=== PATIENT | male | born 1990 | race Two or more races ===

== ENCOUNTER 2017-03-19 03:01 | Emergency (ER) | payer MEDICAID, OTHER ==
[~2017-03-19] VITALS: Ht 162.6 cm; Wt 72.6 kg
--- NOTE | 2017-03-19 03:20 | NUR ---
DR. CARDENAS AT BEDSIDE FOR MSE.
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
[2017-03-19] MEDS ORDERED: LIDOCAINE HCL 1% 20 ML VIAL IJ ONE (03:30)
[2017-03-19] MEDS ORDERED: TDAP DIPH,PERTUSS,TET VAC/PF 0.5 ML DISP.SYRIN IM ONE ×2 (03:30→03:47)
--- NOTE | 2017-03-19 04:40 | NUR ---
SUTURES DONE BY DR. CARDENAS.
[2017-03-19] MEDS ORDERED: MORPHINE SULFATE 4 MG/1 ML DISP.SYRIN IV ONE (05:00)
[2017-03-19] MEDS ORDERED: IV NORMAL SALINE 1000 ML BAG IV ONE (05:00)
[2017-03-19] MEDS ORDERED: ONDANSETRON IV *ER 4 MG/2 ML VIAL IV ONE (05:00)
[2017-03-19] MEDS ORDERED: CEFAZOLIN 1 G in IV DEXTROSE 5% 50 ML IV ONE (05:00)
[2017-03-19 05:14] LABS: BASOPHILS % (AUTO) 0.3 % (0.0-2.0); EOSINOPHILS # (AUTO) 0.2 K/uL (0.0-0.7); EOSINOPHILS % (AUTO) 2.2 % (0.0-7.0); HEMATOCRIT 42.8 % (40-50); HEMOGLOBIN 15.1 G/DL (14.0-18.0); LYMPHOCYTES # (AUTO) 1.8 K/UL (0.8-4.8); MEAN CORPUSCULAR HEMOGLOBIN 32.3 UUG (27.0-31.0); MEAN CORPUSCULAR HGB CONC 35 g/dL (32.0-37.0); MEAN CORPUSCULAR VOLUME 91.7 FL (82.0-92.0); MONOCYTES # (AUTO) 0.7 K/UL (0.1-1.30); MONOCYTES % (AUTO) 7.9 % (0.0-11.0); NEUTROPHILS # (AUTO) 6.1 K/UL (1.8-8.9); NEUTROPHILS % (AUTO) 69.6 % (38.5-71.5); PLATELET COUNT (AUTO) 256 K/UL (150-450); RED BLOOD CELL COUNT(AUTO) 4.67 MIL/UL (4.7-6.1); WHITE BLOOD COUNT (AUTO) 8.8 K/UL (4.0-11.2)
[2017-03-19] MEDS ORDERED: MORPHINE SULFATE 4 MG/1 ML DISP.SYRIN ONE (05:15)
[2017-03-19] MEDS ORDERED: CEFAZOLIN 1 G VIAL ONE (05:16)
[2017-03-19] MEDS ORDERED: ONDANSETRON 4 MG/2 ML VIAL ONE (05:16)
[2017-03-19] MEDS ORDERED: IOHEXOL 350 100 ML INFUS..BTL ONE (05:35)
[2017-03-19] MEDS ORDERED: IV NORMAL SALINE 250 ML IV ONE (05:35)
[2017-03-19 05:39] LABS: BILIRUBIN,DIRECT 0.1 mg/dL (0.0-0.2); BILIRUBIN,TOTAL 0.5 mg/dL (0.2-1.0); POTASSIUM 3.9 mmol/L (3.5-5.1); TOTAL PROTEIN, SERUM 7.2 g/dL (6.4-8.2)
--- NOTE | 2017-03-19 07:14 | NUR ---
REPORT GIVEN TO LESLY CORMIER.
--- NOTE | 2017-03-19 07:32 | NUR ---
called [facility] that is the preferred hospital for pt insurance for hand surgory.
--- NOTE | 2017-03-19 07:33 | NUR ---
PT ATE BREAKFAST ,90%.
[2017-03-19] MEDS ORDERED: HYDROCODONE/APAP 5-325MG TABLET PO ONE (07:45)
[2017-03-19] MEDS ORDERED: HYDROCODONE/APAP 5-325MG TABLET ONE (07:52)
--- NOTE | 2017-03-19 07:58 | NUR ---
PT'S WOUND AT RIGHT HAND WAS CLEANED WITH NS 0.9%, GAUZE DRESSING APPLIED. NO BLEEDING. PT TOLERATED TO PROCEDURE WITHOUT COMPLICATIONS.
--- NOTE | 2017-03-19 08:13 | NUR ---
[facility] TRIMMER, MARLINE, CALLED BACK. THEY CAN NOT ACCEPT PT, BECAUSE THEY DO NOT HAVE HAND SURGEON ON STAFF. DR LYNN NOTIFIED.
--- NOTE | 2017-03-19 08:31 | NUR ---
[facility] WAS CALLED TO TRANSFER THE PT ([phone]). TALKED TO JAIRO. FACE PAGE AND HISTORY AND PHYSICAL OF THE PT WERE FAXED ([phone]).
--- NOTE | 2017-03-19 11:45 | NUR ---
[facility] COORDINATOR,CASSIE, CALLED TO REQUEST PT'S CLINICAL INFORMATION. HE STATED THEIR ADMITING DICTOR WILL CONTACT DR LYNN SHORTLY WITH TRANSFER INFORMATION.
--- NOTE | 2017-03-19 16:06 | NUR ---
NADEGE FROM [facility] CALLED WITH PT'S APPOINTMENT INFORMATION WITH [facility]. DR LYNN NOTIFIED, HE TALKED TO THE PT.
--- NOTE | 2017-03-19 16:53 | NUR ---
PT WAS D/C TO HOME. D/C INSTRUCTIONS GIVEN TO THE PT BY DR LYNN. DRESSING IS INTACT. NO BLEEDING. PT DENIES PAIN AT THIS TIME.
[2017-03-19 16:58] VITALS: BP 131/80
== END 2017-03-19 16:59 | disposition home or self-care (01) ==
LOC: ER 03:01
DX: S11.91XA Laceration without foreign body of unspecified part of neck, initial encounter (principal); S60.551A Superficial foreign body of right hand, initial encounter; X58.XXXA Exposure to other specified factors, initial encounter; Y93.89 Activity, other specified; Y92.9 Unspecified place or not applicable; Y99.9 Unspecified external cause status
CPT/HCPCS: 36415; 70450; 73130; 85025; 85730; 86850; 86900; 86901; 90715; A4217; A4663; J0690; J2270; J2405; J3490; J7030; J7050; J7060; Q9967

== ENCOUNTER 2017-08-10 19:52 | Emergency (ER) | payer MEDICAID ==
[~2017-08-10] VITALS: Ht 162.6 cm; Wt 72.6 kg
--- NOTE | 2017-08-10 20:18 | NUR ---
PT C/O RECTAL PAIN X2 DAYS, WHICH HE STATES IT WORSE UPON MOVEMENT. DENIES N/V OR CONSTIPATION.
--- NOTE | 2017-08-10 20:41 | NUR ---
SACHIN WEATHERS AT BEDSIDE FOR MSE.
[2017-08-10] MEDS ORDERED: TRAMADOL HCL 50 MG TABLET ONE (20:57)
[2017-08-10] MEDS ORDERED: TRAMADOL HCL 50 MG TABLET PO ONE (21:00)
--- NOTE | 2017-08-10 21:21 | NUR ---
Patient discharged to home in stable conditon. Written and verbal after care instructions given. Patient verbalizes understanding of instructions. Pt left ER via wheelchair, accompanied by significant other. No distress noted.
[2017-08-10 21:31] VITALS: BP 112/70
== END 2017-08-10 21:31 | disposition home or self-care (01) ==
LOC: ER 19:52
DX: K64.9 Unspecified hemorrhoids (principal)
CPT/HCPCS: A4663

== ENCOUNTER 2018-11-17 00:24 | Emergency (ER) | payer MEDICAID, OTHER ==
[~2018-11-17] VITALS: Ht 167.6 cm; Wt 68.0 kg
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
[2018-11-17] MEDS ORDERED: HYDROCODONE/APAP 5-325MG TABLET PO ONE (01:00)
[2018-11-17] MEDS ORDERED: SODIUM BICARBONATE 4.2 % (NEUT) 5 ML VIAL TP ONE (01:00)
[2018-11-17] MEDS ORDERED: NEOMY/BACITRA/POLYMYXIN B OINT UD PACKET TP ONE ×2 (01:00→01:28)
[2018-11-17] MEDS ORDERED: LET TOPICAL SOLUTION 8 ML UDC TOP ONE (01:00)
[2018-11-17] MEDS ORDERED: LIDOCAINE HCL 2% 20 ML VIAL TP ONE (01:00)
[2018-11-17] MEDS ORDERED: HYDROCODONE/APAP 5-325MG TABLET ONE (01:28)
--- NOTE | 2018-11-17 03:19 | NUR ---
Patient given written and verbal discharge instructions. Patient verbalizes understanding of instructions. Patient is ambulatory using crutches with steady gait. Refuses offer of prison placement. Patient given list of available shelters in surrounding area.
== END 2018-11-17 03:19 | disposition home or self-care (01) ==
LOC: ER 00:24
DX: S81.812A Laceration without foreign body, left lower leg, initial encounter (principal); F17.210 Nicotine dependence, cigarettes, uncomplicated; F12.10 Cannabis abuse, uncomplicated; Z59.0 Homelessness; W26.8XXA Contact with other sharp object(s), not elsewhere classified, initial encounter; Y93.89 Activity, other specified; Y92.89 Other specified places as the place of occurrence of the external cause; Y99.8 Other external cause status
CPT/HCPCS: 12002; 73590; 99283; J3490; A4217; A4663

== ENCOUNTER 2019-07-25 11:49 | Emergency (ER) | payer MEDICAID, OTHER ==
[~2019-07-25] VITALS: Ht 165.1 cm; Wt 72.6 kg
--- NOTE | 2019-07-25 12:09 | NUR ---
PT IS IN ROOM #2A. DR GOMEZ EVALUATED THE PT.
[2019-07-25] MEDS ORDERED: IV NORMAL SALINE 1000 ML BAG IV ONE (12:30)
[2019-07-25] MEDS ORDERED: PANTOPRAZOLE SODIUM 40 MG VIAL IV ONE (12:30)
[2019-07-25] MEDS ORDERED: ONDANSETRON 4 MG/2 ML VIAL IV ONE (12:30)
[2019-07-25 12:38] LABS: BASOPHILS % (AUTO) 0.2 % (0.0-2.0); EOSINOPHILS # (AUTO) 0.1 K/uL (0.0-0.7); HEMATOCRIT 42.2 % (36.7-47.1); HEMOGLOBIN 14.6 g/dL (12.5-16.3); LYMPHOCYTES % (AUTO) 16.9 % (20.5-51.5); MEAN CORPUSCULAR HGB CONC 35 g/dL (32.5-36.3); MEAN CORPUSCULAR VOLUME 89.3 fL (73.0-96.2); MONOCYTES % (AUTO) 15.9 % (0.0-11.0); PLATELET COUNT (AUTO) 206 K/uL (152-348); RED BLOOD CELL COUNT(AUTO) 4.73 MIL/uL (4.06-5.63); WHITE BLOOD COUNT (AUTO) 6.1 K/uL (3.6-10.2)
[2019-07-25] MEDS ORDERED: ONDANSETRON 4 MG/2 ML VIAL ONE (12:40)
[2019-07-25] MEDS ORDERED: PANTOPRAZOLE SODIUM 40 MG VIAL ONE (12:40)
[2019-07-25 12:46] LABS: POTASSIUM 3.5 mmol/L (3.5-5.1)
[2019-07-25 12:52] LABS: BILIRUBIN,DIRECT 0.2 mg/dL (0.0-0.2); BILIRUBIN,TOTAL 1.4 mg/dL (0.2-1.0); TOTAL PROTEIN, SERUM 6.7 g/dL (6.4-8.2)
[2019-07-25 13:20] LABS: EOSINOPHILS % (MANUAL) 2 % (0-8); LYMPHOCYTES % (MANUAL) 16 % (20-40); MONOCYTES % (MANUAL) 15 % (2-10); NEUTROPHILS % (MANUAL) 67 % (42-75)
[2019-07-25] MEDS ORDERED: KETOROLAC TROMETHAMINE 30 MG INJ IVP ONE (13:45)
[2019-07-25] MEDS ORDERED: KETOROLAC TROMETHAMINE 30 MG INJ ONE (13:50)
[2019-07-25 14:03] LABS: *BILIRUBIN,URIN NEGATIVE (NEGATIVE); *BLOOD, URINE NEGATIVE (NEGATIVE); *CLARITY,URINE CLEAR (CLEAR); *COLOR,URINE YELLOW (YELLOW); *KETONES,URINE NEGATIVE (NEGATIVE); *UROBILINOGEN,URINE 0.2 E.U./dl (NORMAL); LEUKOCYTE ESTERASE ,URINE NEGATIVE (NEGATIVE); NITRITE, URINE NEGATIVE (NEGATIVE); UGLUCOSE NEGATIVE (NEGATIVE)
--- NOTE | 2019-07-25 14:48 | NUR ---
PT WAS D/C'd TO HOME. D/C INSTRUCTIONS GIVEN TO THE PT.
[2019-07-25 14:54] VITALS: BP 133/69
== END 2019-07-25 14:55 | disposition home or self-care (01) ==
LOC: ER 11:49
DX: K52.89 Other specified noninfective gastroenteritis and colitis (principal); K29.20 Alcoholic gastritis without bleeding; R51 Headache; F17.200 Nicotine dependence, unspecified, uncomplicated; Z59.0 Homelessness
CPT/HCPCS: 36415; 70450; 71045; 80048; 80076; 81001; 83690; 84484; 85007; 85025; 85730; 93005; 96374; 96375; 99285; C9113; J1885; J2405; 70030-TC; A4663; J7030

== ENCOUNTER 2020-05-25 15:03 | Emergency (ER) | payer MEDICAID, OTHER ==
--- NOTE | 2020-05-25 15:13 | NUR ---
PT LEFT DURING TRIAGE - DEMANDING PAIN MEDICATION "RIGHT NOW". UNCOOPERATIVE WITH ANSWERING TRIAGE QUESTIONS USING OFFENSIVE VERBIAGE, THEN WALKED OUT.
== END 2020-05-25 15:13 | disposition left against medical advice (07) ==
LOC: ER 15:03
DX: Z75.3 Unavailability and inaccessibility of health-care facilities (principal)